=== PATIENT | female | born 1990 | race Caucasian/White ===

== ENCOUNTER 2023-09-30 23:09 | Emergency (ER) | payer SELFPAY ==
[2023-09-30 23:17] VITALS: BP 131/75; PULSE 91; RESP 20; TEMP 37.2; O2SAT 99; BMI 28.0
[2023-10-01] MEDS: AMOXICILLIN/CLAV 875/125 MG 1 TAB PO (00:16)
--- NOTE | 2023-10-01 01:33 | ED.UPPEXIN ---
HPI - Extremity Injury (Upper) General Chief Complaint: Extremity Injury, Upper Stated Complaint: Dog bite left hand Time Seen by Provider: 10/01/23 00:02 Source: patient Mode of arrival: Ambulatory History of Present Illness HPI narrative: Patient is a healthy 33-year-old female who is right-hand dominant presenting today with left hand dog bite. She reports that her little dog was getting in a fight with a big dog she tried to break up the dog fight. She reports that it felt a little tingly but is feeling little bit better now. Her immunizations are up-to-date in the dog's immunizations are also up-to-date Related Data Previous Rx's Medication Instructions Recorded amoxicillin 875 mg-potassium 1 tab PO BID #20 tabs 10/01/23 clavulanate 125 mg tablet Allergies Allergy/AdvReac Type Severity Reaction Status Date / Time No Known Drug Allergies Allergy Verified 09/30/23 23:16 Patient History Social History Smoking Status: Never smoker Smoking Status: Never smoker alcohol intake frequency: holidays/special occasions only Substance Use Type: does not use Exam Initial Vital Signs Initial Vital Signs: Vital Signs Temperature 98.9 F 09/30/23 23:17 Pulse Rate 91 H 09/30/23 23:17 Respiratory Rate 20 09/30/23 23:17 Blood Pressure 131/75 09/30/23 23:17 Pulse Oximetry 99 09/30/23 23:17 Oxygen Delivery Method Room Air 09/30/23 23:17 GENERAL: Well-appearing, well-nourished and in no acute distress. CARDIOVASCULAR: peripheral pulses in tact, cap refill <2 sec RESPIRATORY: No respiratory distress, speaks in full sentences without difficulty EXTREMITIES: Normal range of motion, no clubbing or edema. Neurovascularly intact NEUROLOGICAL: Cranial nerves II through XII grossly intact. Normal gait and speech. SKIN: 1.5 cm laceration between left thumb and index finger Procedures Laceration Repair Laceration 1: Site: hand Side (If applicable): left Size (cm): 1.5 Description: linear Depth: simple, single layer Local Anesthetic: lidocaine 1% Amount of anesthesia used (mL): 5 Pre-repair: wound explored, irrigated extensively and deep structures intact Skin layer closed with: nylon Skin layer suture size: 5-0 Number of sutures: 1 Technique: simple, interrupted Course Orders Ordered: Discontinued Medications Amoxicillin/Clavulanate Potassium (Amoxicillin/Clav 875/125 Mg) 1 tab PO NOW ONE Stop: 10/01/23 00:03 Last Admin: 10/01/23 00:16 Dose: 1 tab Documented By: AMY Vital Signs Vital signs: Vital Signs - 8 hr 09/30/23 23:17 10/01/23 02:07 Temperature 98.9 F Pulse Rate 91 H 72 Respiratory Rate 20 18 Blood Pressure 131/75 126/74 Pulse Oximetry 99 100 Oxygen Delivery Method Room Air Room Air MDM - Extremity Injury (Upper) MDM Narrative Medical decision making narrative: Patient healthy 33-year-old female presents today with dog bite left hand. All immunizations are up-to-date for both animal and patient. Laceration is in such a place every time she moves her hand or finger it opens up. 1 suture is placed and good dressing placed. Supportive care with antibiotics. Discharge Plan Departure Patient Disposition: Home Clinical Impression: Dog bite Instructions: DI for Laceration Repair -- Simple, DI for Dog Bite Activity Restrictions/Additional Instructions: *You have been diagnosed with dog bite, laceration *What to do: Have your sutures removed in about 7 days. Keep hand clean and dry with soap and water apply antibiotic ointment 1-2 times daily. Elevate and ice as needed. Expect it to be sore. *Continue to take medications as directed Tylenol Motrin as needed for pain Augmentin 875 twice a day for 10 days--> [facility] in [place] *Follow up with your primary care provider in 2-3 days or call [phone] *Return to ER if you should have increasing redness pain swelling or any new, worsening or concerning symptoms Prescriptions: New amoxicillin-pot clavulanate 875-125 mg tablet 1 tab PO BID Qty: 20 0RF Stand Alone Forms: Patient Portal/API
--- NOTE | 2023-10-01 02:06 | PC.NURSE ---
wound to left hand dressed with telfa and wrapped with soco
[2023-10-01 02:07] VITALS: BP 126/74; PULSE 72; RESP 18; O2SAT 100
== END 2023-10-01 02:08 | disposition home or self-care (01) ==
PROVIDERS: Emergency Provider Emergency Medicine
DX: S61.452A Open bite of left hand, initial encounter (principal); W54.0XXA Bitten by dog, initial encounter; Y93.89 Activity, other specified
CPT/HCPCS: 12001; 99283